=== PATIENT | male | born 1960 | race Caucasian/White ===

== ENCOUNTER 2016-11-25 20:46 | Emergency (ER) | payer SELFPAY ==
[2016-11-25 21:21] VITALS: BP 115/79; PULSE 72; RESP 20; TEMP 98.2; O2SAT 97
--- NOTE | 2016-11-25 22:12 | C.PDOC ---
History Of Present Illness 56 year old male with a history of chronic lower back pain and 3 herniated discs , presents to the ED with complaints of lower back pain radiating to his bilateral hips and down his legs for the past 4 months. Patient states the pain is worse to the left leg and denies fall, trauma, numbness, weakness, incontinence, or medication for pain. He also notes that over a month ago he noticed he gets a hernia to his right inguinal area. Denies pain, nausea, vomiting, or any other complaints at this time. Time Seen by Provider: 11/25/16 21:50 Chief Complaint (Nursing): Lower Extremity Problem/Injury History Per: Patient History/Exam Limitations: no limitations Onset/Duration Of Symptoms: Days Current Symptoms Are (Timing): Still Present Severity: Mild Past Medical History Reviewed: Historical Data, Nursing Documentation, Vital Signs Vital Signs: Last Vital Signs Temp 98.2 F 11/25/16 21:12 Pulse 72 11/25/16 21:12 Resp 20 11/25/16 21:12 BP 115/79 11/25/16 21:12 Pulse Ox 97 11/25/16 23:03 - Medical History PMH: Back Problems Family History: States: Unknown Family Hx - Social History Hx Alcohol Use: No Hx Substance Use: No - Immunization History Hx Tetanus Toxoid Vaccination: No Hx Influenza Vaccination: No Hx Pneumococcal Vaccination: No Review Of Systems Except As Marked, All Systems Reviewed And Found Negative. Constitutional: Negative for: Fever, Chills Cardiovascular: Negative for: Chest Pain Respiratory: Negative for: Shortness of Breath Gastrointestinal: Negative for: Nausea, Vomiting, Abdominal Pain Genitourinary: Negative for: Incontinence Musculoskeletal: Positive for: Back Pain Skin: Negative for: Rash Neurological: Negative for: Weakness, Numbness Physical Exam - Physical Exam Appears: Non-toxic, No Acute Distress Skin: Normal Color, Warm, Dry, No Rash Head: Atraumatic, Normacephalic Eye(s): bilateral: Normal Inspection Oral Mucosa: Moist Neck: Normal, Normal ROM, Supple Chest: Symmetrical Respiratory: No Accessory Muscle Use Gastrointestinal/Abdominal: Bowel Sounds, Soft, No Tenderness, No Mass, Hernia ( +Small protruding hernia to the right inguinal area notes with cough. Easily reducible and non-incarcerated) Back: No CVA Tenderness, No Vertebral Tenderness, Paraspinal Tenderness (+ Bilateral lower back and hip tenderness) Extremity: Normal ROM, No Deformity Neurological/Psych: Oriented x3, Normal Speech, Normal Cognition ED Course And Treatment O2 Sat by Pulse Oximetry: 97 (Room air) Pulse Ox Interpretation: Normal Progress Note: Patient treated with Motrin. Reassessment Condition: Improved Medical Decision Making Medical Decision Making: no sign of cauda equina Disposition Counseled Patient/Family Regarding: Diagnosis, Need For Followup, Rx Given - Disposition Referrals: [facility] [Outside] [facility] [Outside] Disposition: HOME/ ROUTINE Disposition Time: 22:09 Condition: GOOD Additional Instructions: FOLLOW UP IN CLINIC ON MONDAY FOR RE-EVALUATION. IF SYMPTOMS GET WORSE, URINARY/BOWEL INCONTINENCE, LEG WEAKNESS/NUMBNESS OR ANY NEW CONCERNING SYMPTOMS DEVELOP RETURN TO ED. Prescriptions: Cyclobenzaprine [Cyclobenzaprine HCl] 1 tab PO TID PRN #15 tab PRN Reason: Pain, Moderate (4-7) Ibuprofen [Motrin Tab] 1 tab PO Q6H PRN #15 tab PRN Reason: Pain, Moderate (4-7) Instructions: Sciatica (ED), Inguinal Hernia (ED) Forms: Gen Discharge Inst Telugu Print Language: TAMAZIGHT - Clinical Impression Clinical Impression: Sciatica, Hernia - PA / [employer] / Resident Statement MD/DO has reviewed & agrees with the documentation as recorded. - Scribe Statement The provider has reviewed the documentation as recorded by the Scribe Jeanine Davalos. All medical record entries made by the Scribe were at my direction and personally dictated by me. I have reviewed the chart and agree that the record accurately reflects my personal performance of the history, physical exam, medical decision making, and the department course for this patient. I have also personally directed, reviewed, and agree with the discharge instructions and disposition.
== END 2016-11-25 22:18 | disposition home or self-care (01) ==
LOC: C.ER 20:46
DX: M54.42 Lumbago with sciatica, left side (principal); M54.41 Lumbago with sciatica, right side; K40.90 Unilateral inguinal hernia, without obstruction or gangrene, not specified as recurrent